=== PATIENT | female | born 1955 | race Caucasian/White ===

== ENCOUNTER 2017-08-26 11:47 | Emergency (ER) | payer BC ==
--- NOTE | 2017-08-26 14:42 | UC ---
Throat Pain/Nasal Kt HPI - HPI Summary HPI Summary: 62 y/o female presents to the urgent care c/o sore throat, nasal congestion w/ green nasal discharge for the past week. Enlarged tonsils, pain is 6/10 w/ swallowing associated w/ B/L ear pain. Pt denies fever, SOB, chest pain, abdominal pain, N/V/D. Pt has not taking anything to alleviate symptoms. - History of Current Complaint Hx Obtained From: Patient Onset/Duration: Gradual Onset, Lasting Weeks - 1 week, Still Present, Worse Since - yesterday Severity: Moderate Pain Intensity: 6 Pain Scale Used: 0-10 Numeric Cough: Nonproductive Associated Signs & Symptoms: Positive: Dysphagia, Sinus Discomfort, Nasal Discharge - Epiglottits Risk Factors Epiglottis Risk Factors: Negative <Maria C Becker - Last Filed: 08/27/17 18:08> <Leela Stratton - Last Filed: 08/28/17 12:38> - History of Current Complaint Stated Complaint: SORE THROAT Time Seen by Provider: 08/26/17 14:41 - Allergies/Home Medications Allergies/Adverse Reactions: Allergies Allergy/AdvReac Type Severity Reaction Status Date / Time No Known Allergies Allergy Verified 08/26/17 14:32 Home Medications: Home Medications Multivitamins/Minerals TAB* [Thera M Plus TAB*] 1 tab PO DAILY 08/26/17 [ History Confirmed 08/26/17] PMH/Surg Hx/FS Hx/Imm Hx Previously Healthy: Yes - Pt denies PMHX - Family History Known Family History: Positive: Cardiac Disease, Diabetes - Social History Occupation: Employed Full-time Lives: With Family <Maria C Becker - Last Filed: 08/27/17 18:08> Review of Systems Constitutional: Negative Skin: Negative Eyes: Negative ENT: Sore Throat, Ear Ache - B/L ear pain, Nasal Discharge, Sinus Congestion, Sinus Pain/Tenderness Respiratory: Negative Cardiovascular: Negative Gastrointestinal: Negative Genitourinary: Negative Motor: Negative Neurovascular: Negative Musculoskeletal: Negative Neurological: Headache Psychological: Negative Is Patient Immunocompromised?: No All Other Systems Reviewed And Are Negative: Yes <Maria C Becker - Last Filed: 08/27/17 18:08> Physical Exam Triage Information Reviewed: Yes - Additional Comments Vitals: reviewed General: Well developed, well-nourished female patient with NAD. Head and face: Normocephalic and atraumatic, Positive tenderness over the frontal and maxillary sinuses.. Eyes: PERRLA, EOMI x 2. Normal conjunctiva. No eye discharge. ENT: Ears and TM with normal limits. Nose: with yellowish discharge and erythematous mucosa. Pharynx with erythema, B/L tonsil enlargement w/o exudate. Neck: Supple, no JVD, no carotid bruits and no lymphadenopathy. Lungs: clear, no rales, no rhonchi, no wheezes. CVS: RRR, S1 and S2 present no murmurs or gallops appreciated. Abdomen: soft nontender with positive bowel sounds. Extremities: no edema noted. Neuro: WNL. Skin: warm and dry <Maria C Becker - Last Filed: 08/27/17 18:08> Vital Signs: Initial Vital Signs Temp 98.8 F 08/26/17 14:37 Pulse 85 08/26/17 14:37 Resp 16 08/26/17 14:37 BP 139/88 08/26/17 14:37 Pulse Ox 97 08/26/17 14:37 <Leela Stratton - Last Filed: 08/28/17 12:38> Throat Pain/Nasal Course/Dx - Course Course Of Treatment: 62 y/o female presents to the urgent care c/o sore throat, nasal congestion w/ greed nasal discharge for the past week. Enlarged tonsils, pain is 6/10 w/ swallowing associated w/ B/L ear pain. Pt denies fever, SOB, chest pain, abdominal pain, N/V/D. Pt has not taking anything to alleviate symptoms. Hx obtained. Pt w/ sinusitis on examination. Rapdi strep ordered: negative.Pt with 1 weeks of symptoms getting worse. Pt Rx Augmentin PO and flonase nasal spray and Ibuprofen PO. Discharge instructions explained to Pt. Advised to Return to the clinic or PCP if symptoms do not improve.Pt understood and agreed with plan of care. - Differential Dx/Diagnosis Differential Diagnosis/HQI/PQRI: Influenza, Laryngitis, Mononucleosis, Otitis Media, Pharyngitis, Tonsillitis Provider Diagnoses: 1-Acute pharyngitis. 2-Acute bacterial sinusitis <Maria C Becker - Last Filed: 08/27/17 18:08> Discharge <Maria C Becker - Last Filed: 08/27/17 18:08> <Leela Stratton - Last Filed: 08/28/17 12:38> - Discharge Plan Condition: Stable Disposition: HOME Prescriptions: Amoxicillin/Clavulanate TAB* [Augmentin TAB 875*] 875 mg PO BID #20 tab Fluticasone NASAL SPRAY 50MCG* [Flonase NASAL SPRAY 50MCG*] 2 spray BOTH NARES DAILY #1 btl Ibuprofen TAB* [Motrin TAB* 800 MG] 800 mg PO Q6H PRN #20 tab PRN Reason: Sore Throat Patient Education Materials: Pharyngitis (ED), Sinusitis (ED) Referrals: [facility] [place] [facility] [Outside] - If Needed Additional Instructions: 1- Please increase fluid intake and rest. Start taking the take full course of antibiotic in 2 days if not improvement of symptoms 2-Use Flonase as directed to help drain fluid. Also buy saline drops to clear sinuses 3-Take Ibuprofen PO q6-8hrs after meals to alleviates sore throat 4-Return to the clinic or PCP if symptoms do not improve for further management and treatment Attestation Statement User Type: Provider - I was available for consult. This patient was seen by the SHARLENE. The patient was not presented to, seen by, or examined by me. Edgar <Leela Stratton - Last Filed: 08/28/17 12:38>
[2017-08-26 14:47] VITALS: BP 139/88
== END 2017-08-26 15:40 | disposition home or self-care (01) ==
LOC: UCCORT 11:47
DX: J02.9 Acute pharyngitis, unspecified (principal); J01.90 Acute sinusitis, unspecified; B96.89 Other specified bacterial agents as the cause of diseases classified elsewhere
CPT/HCPCS: 87651; 99202; G0463